=== PATIENT | female | born 2005 | race Caucasian/White ===

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

== ENCOUNTER 2025-07-07 18:16 | Emergency (ER) | payer OTHER, MEDICAID, SELFPAY ==
--- NOTE | 2025-07-07 18:18 | ED_ITS ---
HPI - Wound/Laceration General Chief Complaint: Skin/Abscess/Foreign Body Stated Complaint: Left thumb lac Time Seen by Provider: 07/07/25 18:18 Source: patient Mode of arrival: ambulatory Limitations: no limitations History of Present Illness HPI narrative: Alexander is a 19-year-old female patient presenting to the clinic today with complaints of a left thumb laceration around 530 this evening. She reports she was throwing away a can and cut her thumb on the side of the can. Bleeding is controlled. Tetanus is greater than 5 years. Related Data Home Medications ?Medication ?Instructions ?Recorded ?Confirmed ?Last Taken ?Type sertraline 50 mg tablet mg 04/12/24 Unknown History Allergies Allergy/AdvReac Type Severity Reaction Status Date / Time No Known Allergies Allergy Mild Verified 07/07/25 18:28 Review of Systems Review of Systems: Pertinent positives per HPI. Patient denies any fever, chills, rash, headache, visual changes, dizziness, cough, runny nose, sore throat, shortness of breath, chest pain, palpitations, nausea, vomiting, diarrhea, constipation, abdominal pain, or any urinary issues. PMFSH Past Medical History Medical History Acid reflux Anxiety and depression Surgical History Surgical History History of tonsillectomy and adenoidectomy Social History Social History Smoking status: Never smoker Alcohol intake: never Substance use type: does not use Living arrangements: with family Gender identity (if verbalized by the patient): Female Comments At the time of my signature, I reviewed and agree with the nursing past medical, surgical, social, and family history. There is no relevant family history pertinent to the patient complaint. Exam Narrative: General: Well-developed, well nourished, in no apparent distress Head: Normocephalic, atraumatic. Cardio: Regular rate and rhythm, s1 and s2 normal, no murmur appreciated. Resp: Clear to auscultation bilaterally, no rhonchi, rales, wheezing or rubs. Integumentary: Villalba, warm, and dry, 1.5 cm horizontal laceration to the distal volar aspect of the left thumb without nail involvement Course Course Emergency Course: Portions of this record may have been created with voice recognition software. Level of Care: Express Care Visit Vital Signs Vital signs: Vital Signs Temperature 36.4 C 07/07/25 18:24 Pulse Rate 72 07/07/25 18:24 Respiratory Rate 20 07/07/25 18:24 Blood Pressure 135/51 L 07/07/25 18:24 Pulse Oximetry 100 07/07/25 18:24 Oxygen Delivery Room Air 07/07/25 18:24 Temperature 36.4 C 07/07/25 18:24 Pulse Rate 72 07/07/25 18:24 Respiratory Rate 20 07/07/25 18:24 Blood Pressure 135/51 L 07/07/25 18:24 Pulse Oximetry 100 07/07/25 18:24 Oxygen Delivery Room Air 07/07/25 18:24 Vital signs reviewed Procedures Laceration Laceration 1: Date: 07/07/25 Site: hand (thumb) Side (If applicable): left Size (cm): 1.5 Description: linear Depth: simple, single layer Local Anesthetic: lidocaine 1% Amount of anesthesia used (mL): 2 Pre-repair: wound explored and irrigated ====== Skin Level ====== Skin layer closed with: nylon Size (cm): 5-0 Number of sutures: 4 Technique: simple, interrupted ====== Subcutaneous Layer ====== ====== Muscle Layer ====== ====== Tendon Layer ====== Dressing: Verbal consent obtained for laceration repair. Risk and benefits explained and patient voiced understanding. Area was cleansed with antiseptic wound wash and a 27 gauge needle was then used to instill (2) ml of 1% lidocaine without epi into the wound edges. Area was prepped and draped using sterile technique. A 5-0 suture on a p needle was used to place (4) interrupted sutures bringing the wound edges together- well approximated. Patient tolerated procedure well. Sterile dressing applied. MDM - Wound/Laceration MDM Narrative Medical decision making narrative: At the time of visit patient is resting comfortably on the exam table. Patient appears to be nontoxic. Complaints of a left thumb laceration around 530 this evening. She reports she was throwing away a can and cut her thumb on the side of the can. Bleeding is controlled. Tetanus is greater than 5 years. On exam 1.5 cm horizontal laceration to the distal volar aspect of the left thumb without nail involvement. Laceration repair recommended. Tetanus shot ordered. Medications: Tdap 0.5 mL IM given in the clinic today Procedure: Laceration repair was performed in the clinic today. Four 5-0 interrupted sutures were placed bringing the wound edges well approximate. Bleeding controlled. Patient tolerated well. Plan: Patient has a 1.5 cm laceration-wound repaired in the clinic today. Patient tolerated well. Sutures out in 7 days. Tetanus was updated in the clinic today. Supportive measures were discussed with the patient and they voiced understanding discharge instructions and agrees to treatment plan. Return precautions reviewed Differential Diagnosis Differential diagnosis: Likely laceration, abscess, abrasion and avulsion of skin Discharge Plan Discharge Clinical Impression: Laceration of thumb Qualifiers: Encounter type: initial encounter Damage to nail status: without damage Foreign body presence: without foreign body Laterality: left Qualified Code(s): S61.012A - Laceration without foreign body of left thumb without damage to nail, initial encounter Patient Disposition: Home Condition: Stable Instructions: Antibiotic Form, Finger Laceration (ED) Additional Instructions: Tdap was updated in the clinic today Leave bandage on for 24 hours then may remove and apply band aide covering as needed. Keep wound clean and dry Skin sutures out in 7 days. Do not submerge hand in dirty water Watch for signs and symptoms of infection- redness, streaking, swelling, purulent discharge, or increase in pain. Follow up with your PCP for suture removal or return to the Express care. Patient Language: Sri Lankan Prescriptions: No Action sertraline 50 mg tablet amoxicillin 875 mg tablet 875 mg PO Q12H Qty: 20 0RF Follow-up/Referrals: UNKNOWN,DOCTOR [Non-Staff] Stand Alone Forms: Work/School Release IP Time of Disposition: 18:37 Quality NIHSS Nursing Documentation ED NIHSS nursing documentation: reviewed/agree
--- OUTSIDE RECORDS SUMMARY | 2025-07-07 18:18 | XMS_ITS | Clinical Summary ---
Author Organization [facility] Address [address] [place] [address] Phone Care Team Providers Care [employer] Name Role Phone [facility], External Provider Primary Care Provider U navailable Allergies No known active allergies Medications bupropion HCl (WELLBUTRIN ORAL) Take by mouth daily. Active fluoxetine HCl (PROZAC ORAL) Take by mouth daily. Active Family History Medical History Relation Name Comments Anxiety Paternal Grandmother Depression Paternal Grandmother Relation Name Status Comments Brother Alive Father Alive Mother Alive Paternal Grandmother Alive Sister Alive Social History Tobacco Use Types Packs/Day Years Used Date Smoking Tobacco: Never Smokeless Tobacco: Never Alcohol Use Standard Drinks/Week Comments Not Currently 0 (1 standard drink = 0.6 oz pur e alcohol) Feeling Safe Answer Date Recorded Within the last year, have y ou been afraid of your partner or ex-partner? No 01/16/2022 Within the last year, have y ou been humiliated or emotionally abused in other ways by your partner or ex-partner? No Within the last year, have y ou been kicked, hit, slapped, or otherwise physically hurt by your partner or ex-partner? No 01/16/2022 Within the last year, have y ou been raped or forced to have any kind of sexual activity by your partner or ex-partner? No 01/16/2022 Financial Resource Strain Answer Date R ecorded How hard is it for you to pa y for the very basics like food, housing, medical care, and heating? Not hard at all 01/16/2022 Food Insecurity Answer Date Recorded In the past 12 months, have you worried that your food would run out before you had money to buy more? Never true 2021 Ran Out of Food in the Last Year Not on file 01/16/2022 Transportation Needs Answer Date Record ed In the past 12 months, has l ack of transportation kept you from medical appointments or from getting medications? No 12/29 In the past 12 months, has l ack of transportation kept you from meetings, work, or from getting things needed for daily living? No 01/16/2022 Housing Stability Answer Date Recorded In the last 12 months, was t here a time when you were not able to pay the mortgage or rent on time? No 01/16/2022 Number of Times Moved in the Last Year Not on fi le 01/16/2022 At any time in the past 12 m [facility], were you homeless or living in a senior living (including now)? No 01/16/2022 Caregiver Education and Work Answer Scott e Recorded Do you have a high school degree? No 01/16/2022 Do you ever need help reading hospital materials ? No 01/16/2022 Safety and Environment Answer Date Cal rded Do you worry that your child may have been physically abused? No 01/16/2022 Do you worry that your child may have been sexua lly abused? No 01/16/2022 Are there any guns kept in o r around your home or where your child spends time? No 01/16/2022 Guns Unloaded or Locked Away Not on file Caregiver Health Answer Date Recorded Over the past two weeks, how often have you felt little interest or pleasure in doing things? Not at all 01/16/2022 Over the past two weeks have you been bothered by feeling down, depressed, or hopeless? Several days 01/16/2022 Does anyone in your home hav e a problem with alcohol, marijuana, other substances? No 01/16/2022 Adolescent Substance Use Answer Date Re corded Do you have a problem with alcohol or marijuana? No 01/16/2022 Do you use medicine not pres cribed to you, or any other types of drugs (such as cocaine, heroin, or meth)? No 01/16/2022 Do you use tobacco or e-cigarettes? No 01/16/2022 Adolescent Education Answer Date Record ed Getting School Help Needed Not on file 06/08 Comments No Sex and Gender Information Value Date Recorded Sex Assigned at Not on file Legal Sex Female 4:56 PM CDT Gender Identity Not on file Sexual Orientation Not on file Last Filed Vital Signs Vital Sign Reading Time Taken Comments Blood Pressure 121/74 01/16/2022 7:34 PM CDT Pulse 98 01/16/2022 7:34 PM CDT Temperature 36.3 C (97.4 F) 01/16/2022 7:34 PM CDT Respiratory Rate 18 01/16/2022 7:34 PM CDT Oxygen Saturation 100% 01/16/2022 7:34 PM CDT Inhaled Oxygen Concentration - - Weight 123.7 kg (272 lb 11.3 oz) 01/16/2022 5:04 PM CDT Height - - Body Mass Index - - Plan of Treatment Health Maintenance Due Date Last Done Comments CHLAMYDIA SCREENING (ANNUAL) 11-24 YEARS 2016 HPV VACCINES (1 - 3-dose series) 2020 DTAP/TDAP/TD VACCINES (1 - Tdap) 2024 HEPATITIS B VACCINES (1 of 3 - 19+ 3-dose series) 06/30 INFLUENZA VACCINE (#1) 2025 Insurance [place] Care Teams [employer] Relationship Specialty Start Date End Date [facility], External Provider [address] [place] [id number] PCP - General 01/16/22
--- OUTSIDE RECORDS SUMMARY | 2025-07-07 18:18 | XMS_ITS ---
Author Organization [facility] Address [address] [place] [address] Care Team Providers Care Seeing Eye Dog Teacher Name Role Phone Jose Polanco MD [facility] Status:Enrolled (Active) Start date:11/27/2024 Enrollment date:11/27/2024 Related social drivers of health:Intimate Partner Violence, Social Connections, Alcohol Use, Tobacco Use, Financial Resource Strain,Depression, Stress, Physical Activity, Food Insecurity, Transportation Needs, Housing Stability, Utilities Continued Care and Services Coordination
[2025-07-07 18:24] VITALS: BP 135/51; PULSE 72; RESP 20; TEMP 36.4; O2SAT 100
[2025-07-07] MEDS: TETANUS,DIPHTHERIA,AC PERTUSSIS ADULT (0.5 ML) BOOSTRIX IM (18:37)
[2025-07-07] MEDS: LIDOCAINE 1% LOCAL INJ 2 ML AMPUL 4 ML INFILTRATE (18:37)
== END 2025-07-07 19:10 | disposition home or self-care (01) ==
LOC: EXPBETH 18:20
PROVIDERS: Emergency Provider Nurse Practitioner Family
DX: S61.012A Laceration without foreign body of left thumb without damage to nail, initial encounter (principal); W45.8XXA Other foreign body or object entering through skin, initial encounter; Z23 Encounter for immunization; K21.9 Gastro-esophageal reflux disease without esophagitis; F41.9 Anxiety disorder, unspecified; F32.A Depression, unspecified
CPT/HCPCS: 12001; 90471; 90715; 99212; G0463; J2003

== ENCOUNTER 2025-07-24 10:10 | Emergency (ER) | payer MEDICAID, SELFPAY ==
[2025-07-24 10:14] VITALS: BP 113/70; PULSE 93; RESP 20; TEMP 36.6; O2SAT 100
--- NOTE | 2025-07-24 10:25 | ED.URI ---
HPI - URI/Sore Throat General Chief Complaint: Upper Respiratory Infection Stated Complaint: cold symptoms Time Seen by Provider: 07/24/25 10:25 Source: patient, RN notes reviewed and old records reviewed Mode of arrival: ambulatory Limitations: no limitations History of Present Illness HPI Narrative: 20 year old female presents to [facility] care with complaints of one week duration of sore throat, cough, nasal drainage,headache,denies any known fevers.Patient reports that her throat has become intensively more painful. Paitient reports that she has been taking Ibuprofen and also some OTC sinus medication without improvement. MD elicited complaint: cough, sore throat, rhinorrhea and nasal congestion Onset (ago): week(s) (1) Pain scale (0-10): 10 Able to tolerate fluids by mouth: Yes Exacerbating factors: swallowing Treatments prior to arrival: other (sinus medication and Ibuprofen) Related Data Home Medications ?Medication ?Instructions ?Recorded ?Confirmed ?Last Taken ?Type sertraline 50 mg tablet mg 04/12/24 Unknown History Allergies Allergy/AdvReac Type Severity Reaction Status Date / Time No Known Allergies Allergy Mild Verified 07/24/25 10:12 Review of Systems Review of Systems: CONSTITUTIONAL: reports malaise,positive for chills, sweats, no known fever. EYES: Denies visual changes, redness, or discharge. ENT: Reports rhinorrhea, congestion, sinus pain,no otalgia and positive for sore throat. CARDIOVASCULAR: Denies chest pain, palpitations, or edema. RESPIRATORY: Reports cough.? Denies dyspnea. GASTROINTESTINAL: Denies abdominal pain, nausea, vomiting, diarrhea SKIN: Denies rash or itching. MUSCULOSKELETAL: Denies myalgia. NEUROLOGIC: Reports headache. All systems reviewed & are unremarkable except as noted in HPI and below PMFSH Past Medical History Medical History (Updated 07/25/25 @ 07:24 by Chantel Peters NP) Mood disorder Acid reflux Anxiety and depression Surgical History Surgical History History of tonsillectomy and adenoidectomy Social History Social History (Updated 07/25/25 @ 07:22 by Chantel Peters NP) Smoking status: Current every day smoker Tobacco type: e-cigarettes/vaping Alcohol intake: never Substance use type: does not use Living arrangements: with family Gender identity (if verbalized by the patient): Female Comments At time of signature, agree with nursing past medical, surgical, social and family history. There is no relevant family history pertinent to the presenting complaint Exam Narrative: GENERAL: Well-appearing, well-nourished, and in no acute distress. HEAD: Normocephalic EYES: PERRLA, conjunctivae clear ENT: Nares clear, turbinates edematous and erythematous, clear discharge, sinus pressure and headache. Mucous membranes moist. TM pearly coto with dull light reflex bilaterally; no tragal tenderness. Oropharynx erythematous without lesions. Tonsils not present and throat without exudate, no drooling, no hoarseness, no trismus, uvula midline, post nasal drainage.. NECK: Supple. No lymphadenopathy CHEST: Clear to auscultation, breath sounds equal. No wheezing, rhonchi, rales, or stridor. No respiratory distress, speaks in full sentences.dry cough SAO2 100% on room air HEART: Regular rate and rhythm. No murmur heard. SKIN: Warm, dry, no rash. NEURO: Alert and oriented x3. PSYCH: Normal mood and affect Course Course Emergency Course: Patient is aware of diagnosis, understands and agrees to treatment plan.? Anticipatory guidance given.? Patient agrees to follow-up as directed and is aware of reasons to seek care at the emergency department. Portions of this record may have been created with voice recognition software Level of Care: Express Care Visit Vital Signs Vital signs: Vital Signs Temperature 36.6 C 07/24/25 10:14 Pulse Rate 93 07/24/25 10:14 Respiratory Rate 07/24/25 10:14 Blood Pressure 113/70 07/24/25 10:14 Pulse Oximetry 100 07/24/25 10:14 Oxygen Delivery Room Air 07/24/25 10:14 Temperature 36.6 C 07/24/25 10:14 Pulse Rate 93 07/24/25 10:14 Respiratory Rate 07/24/25 10:14 Blood Pressure 113/70 07/24/25 10:14 Pulse Oximetry 100 07/24/25 10:14 Oxygen Delivery Room Air 07/24/25 10:14 Reviewed MDM - URI/Sore Throat MDM Narrative Medical decision making narrative: Differential diagnosis considered: Ramirez virus, strep pharyngitis, allergic rhinitis, upper respiratory tract infection, sinusitis, rhinosinusitis, nasopharyngitis. viral pharyngitis, otitis media, otitis externa, pneumonia, bronchitis, viral cough syndrome, viral syndrome, and influenza.? Exam findings show no acute concerns or changes; patient is non-toxic appearing and is in no distress.? Patient is appropriate for outpatient treatment and follow-up. Differential Diagnosis Differential diagnosis: Likely upper respiratory infection, viral infection, influenza, pharyngitis and other (strep pharyngitis, COVID) Medical Records Attestation: I reviewed the patient's medical records. Lab Data Attestation: I reviewed the patient's lab results. Lab results narrative: strep screen negative, strep culture sent, COVID antigen negative, Influenza A&B negative Labs: Lab Results 07/24/25 Range/Units 10:22 POC Influenza A Ag Negative (Negative) POC Influenza B Ag Negative (Negative) POC SARS CoV-2 Ag Negative (Negative) POC Grp A Strep Screen Negative (Negative) reviewed Critical Care Time Critical Care Time Critical Care Time: No Discharge Plan Discharge Clinical Impression: Upper respiratory infection Qualifiers: URI type: unspecified URI Qualified Code(s): J06.9 - Acute upper respiratory infection, unspecified Patient Disposition: Home Condition: Stable Instructions: Upper Respiratory Infection (ED) Additional Instructions: Increase fluids especially juices and water [id number]-[id number] cough and cold medicine of your choice for your symptoms Flonase nasal spray take as prescribed Claritin daily take as prescribed heat to the face 20-30 minutes 4-6 times a day for pain Salt water gargles, throat lozenges or throat sprays as desired If your symptoms persist, change or worsen significantly before you can contact your personal physician then please, without delay, go to the emergency department for further evaluation. Follow-up with PCP in 7-10 days or sooner if needed May take Tylenol or ibuprofen per package instructions for any fever pain Patient Language: Macedonian Prescriptions: New loratadine [Claritin] 10 mg tablet 10 mg PO DAILY Qty: 30 0RF fluticasone propionate [Flonase Allergy Relief] 50 mcg/actuation spray,suspension 1 spray intranasal DAILY Qty: 16 0RF Rx Instructions: administer into each nostril No Action sertraline 50 mg tablet Follow-up/Referrals: PHYSICIAN,LEASE PURCHASE TRUCK DRIVER [Primary Care Provider, Internal Medicine] Time of Disposition: 10:45 Quality Edith Coma Scale Eyes: Open Verbal: Oriented and Alert Motor: Follows Commands Edith Coma Total Score: 15
[2025-07-24 10:32] LABS: EDSTREPNEGPOS1 Negative (Negative)
[2025-07-24 10:53] LABS: EDCOVIDSCREEN Negative (Negative); EDINFLUASCREEN Negative (Negative); EDINFLUBSCREEN Negative (Negative)
--- OUTSIDE RECORDS SUMMARY | 2025-07-24 11:12 | XMS_ITS ---
Author Organization [facility] Address [address] [place] [address] Care Team Providers Care Oil Well Driller Name Role Phone Jose Polanco MD [facility] Status:Enrolled (Active) Start date:11/27/2024 Enrollment date:11/27/2024 Related social drivers of health:Intimate Partner Violence, Social Connections, Alcohol Use, Tobacco Use, Financial Resource Strain,Depression, Stress, Physical Activity, Food Insecurity, Transportation Needs, Housing Stability, Utilities Continued Care and Services Coordination
--- OUTSIDE RECORDS SUMMARY | 2025-07-24 11:12 | XMS_ITS | Clinical Summary ---
Author Organization [facility] Address [address] [place] [address] Phone Care Team Providers Care Transportation Engineering Technician Name Role Phone [facility], External Provider Primary Care Provider [...] any time in the past 12 m [facility], were you homeless or living in a prison (including now)? No 01/16/2022 Caregiver Education and [...] [place] Care Teams Transportation Engineering Technician Relationship Specialty Start Date End Date [facility], External Provider [address] [place] [address] PCP - General 01/16/22
--- OUTSIDE RECORDS SUMMARY | 2025-07-24 11:12 | XMS_ITS | Clinical Summary ---
Author Organization [facility] Address [address] [place] [address] Care Team Providers Care Housesmith Name Role Phone Jose Polanco MD Primary Care Provider + Social History Tobacco Use Types Packs/Day Years Used Date Smoking Tobacco: Never Assessed Comments Unknown Sex and Gender Information Value Date Recorded Sex Assigned at Female 12/27/2023 11:08 AM DROP FORGER HELPER Legal Sex Female 7:17 PM CDT Gender Identity Female 12/27/2023 11:08 AM DROP FORGER HELPER Sexual Orientation Not on file Plan of Treatment Health Maintenance Due Date Last Done Comments Hepatitis C Virus (HCV) Screening 2005 Hepatitis B Immunization (3 of 3 - 3-dose series) 01/11/2006 2005, 2005 Meningococcal B Immunization (1 of 2 - Standard) 2021 Influenza Immunization (#1) 06/30/202507/30, 09/14/2020, 08/21/2019, Additional history exists SARS-COV-2 Immunization ( season) 2025 Respiratory Syncytial Virus (RSV) Immunization (Adult) (1 - 1-dose 75+ series) 2080 Pneumococcal Immunization Combined Aged Out 10/16/2006, 02/10/2006, 2005 No longer eligible based on patient's age to complete this topic Hepatitis A Immunization Discontinued 06/13/2009, 12/28 Measles Mumps Rubella (MMR) Immunization Discontinued 07/21/2009, 08/24/2006 Polio (IPV) Immunization Discontinued 009, 02/10/2006, 2005, Additional history exists Varicella Immunization Discontinued 07/21/2009, 2005 DTaP/Tdap/Td Immunization Discontinued 2016, 07/21/2009, 10/16/2006, Additional history exists Meningococcal Immunization (ACWY) Aged Out 05/10/2017 No longer eligible based on patient's age to complete this topic TdaP Immunization Completed 05/10/2017 Human Papillomavirus (HPV) Immunization Completed 08/21/2019, 05/10/2017 Rotavirus Immunization Aged Out No lo nger eligible based on patient's age to complete this topic Insurance [place] Care Teams Housesmith Relationship Specialty Start Date End Date Jose Polanco MD [address] [place] [address] [address] PCP - General Family Medicine 12/04/23
== END 2025-07-24 10:54 | disposition home or self-care (01) ==
PROVIDERS: Emergency Provider Registered Nurse
DX: J06.9 Acute upper respiratory infection, unspecified (principal); F17.290 Nicotine dependence, other tobacco product, uncomplicated; Z20.822 Contact with and (suspected) exposure to COVID-19
CPT/HCPCS: 87081; 87426; 87804; 87880; 99213; G0463

== ENCOUNTER 2025-09-20 16:18 | Emergency (ER) | payer SELFPAY ==
--- OUTSIDE RECORDS SUMMARY | 2025-09-20 16:21 | XMS_ITS ---
Author Organization [facility] Address [address] [place] [address] Care Team Providers Care Store Protection Specialist Name Role Phone Jose Polanco MD Primary Care Provider + [facility] Status:Enrolled (Active) Start date:11/27/2024 Enrollment date:11/27/2024 Related social drivers of health:Intimate Partner Violence, Social Connections, Alcohol Use, Tobacco Use, Financial Resource Strain,Depression, Stress, Physical Activity, Food Insecurity, Transportation Needs, Housing Stability, Utilities Continued Care and Services Coordination
--- OUTSIDE RECORDS SUMMARY | 2025-09-20 16:21 | XMS_ITS | Clinical Summary ---
Author Organization [facility] Address [address] [place] [address] Phone Care Team Providers Care Cardio Clinician Name Role Phone [facility], [facility] Provider Primary Care Provider U navailable [...] any time in the past 12 m [facility], were you homeless or living in a detention (including now)? No 01/16/2022 Caregiver Education and [...] [place] Care Teams Cardio Clinician Relationship Specialty Start Date End Date [facility], External Provider [address] [place] [address] PCP - General 01/16/22
--- OUTSIDE RECORDS SUMMARY | 2025-09-20 16:23 | XMS_ITS | Clinical Summary ---
Author Organization [facility] Address [address] [place] [address] Care Team Providers Care Compression Molding Machine Setter Name Role Phone Jose Polanco MD Primary Care Provider + Social History Tobacco Use Types Packs/Day Years Used Date Smoking Tobacco: Never Assessed Comments Unknown Sex and Gender Information Value Date Recorded Sex Assigned at Female 12/27/2023 11:08 AM SAUSAGE GRINDER Legal Sex Female 7:17 PM CDT Gender Identity Female 12/27/2023 11:08 AM SAUSAGE GRINDER Sexual Orientation Not on file Plan of Treatment Health Maintenance Due Date Last Done Comments Hepatitis C Virus (HCV) Screening 2005 Hepatitis B Immunization (3 of 3 - 3-dose series) 01/11/2006 2005, 2005 Meningococcal B Immunization (1 of 2 - Standard) 2021 Influenza Immunization (#1) 06/30/202507/30, 09/14/2020, 08/21/2019, Additional history exists SARS-COV-2 Immunization (2024- season) 2025 Respiratory Syncytial Virus (RSV) Immunization (Adult) (1 - 1-dose 75+ series) 2080 Pneumococcal Immunization Combined Aged Out 10/16/2006, 02/10/2006, 2005 No longer eligible based on patient's age to complete this topic Hepatitis A Immunization Discontinued 06/13/2009, 12/28 Measles Mumps Rubella (MMR) Immunization Discontinued 07/21/2009, 08/24/2006 Polio (IPV) Immunization Discontinued 009, 02/10/2006, 2005, Additional history exists Varicella Immunization Completed 07/21/2009, 2005 DTaP/Tdap/Td Immunization Discontinued 2016, 07/21/2009, 10/16/2006, Additional history exists Meningococcal Immunization (ACWY) Aged Out 05/10/2017 No longer eligible based on patient's age to complete this topic TdaP Immunization Completed 05/10/2017 Human Papillomavirus (HPV) Immunization Completed 08/21/2019, 05/10/2017 Rotavirus Immunization Aged Out No lo nger eligible based on patient's age to complete this topic Insurance [place] Care Teams Compression Molding Machine Setter Relationship Specialty Start Date End Date Jose Polanco MD [address] [place] [address] [address] PCP - General Family Medicine 12/04/23
[2025-09-20 16:28] VITALS: BP 126/64; PULSE 88; RESP 16; TEMP 36.7; O2SAT 98
--- NOTE | 2025-09-20 16:34 | ED_ITS ---
HPI - URI/Sore Throat General Chief Complaint: Nausea/Vomiting/Diarrhea Stated Complaint: Shortness of Breath/Cough Time Seen by Provider: 09/20/25 16:39 Source: patient Mode of arrival: ambulatory Limitations: no limitations History of Present Illness HPI Narrative: 20 year old female presents to express care wit complaints of intermittent vomiting Monday, Monday, and Monday of this week with no emesis. She reports that she had vomiting again yesterday and today she vomited at work and was sent home. Patient reports that she has had productive cough and runny nose for a week with no known fevers, chills or body aches. Patient reports that she was tested for flu and COVID on Monday which was negative.Patient denies any abdominal pain or any diarrhea.reports no blood in emesis or any bilious vomiti. MD elicited complaint: cough, rhinorrhea, nasal congestion and other (vomiting) Onset (ago): week(s) (1) Severity: mild Description of mucous: clear Able to tolerate fluids by mouth: Yes Treatments prior to arrival: none Related Data Home Medications ?Medication ?Instructions ?Recorded ?Confirmed ?Last Taken ?Type sertraline 50 mg tablet mg 04/12/24 Unknown History nitrofurantoin 09/20/25 Unknown History monohydrate/macrocrystals 100 mg capsule Allergies Allergy/AdvReac Type Severity Reaction Status Date / Time No Known Allergies Allergy Mild Verified 09/20/25 16:28 Review of Systems Review of Systems: CONSTITUTIONAL: Denies fever, chills, or sweats. EYES: Denies visual changes, redness, or discharge. ENT: reports rhinorrhea, congestion,no sore throat, no otalgia. CARDIOVASCULAR: Denies chest pain, palpitations, or edema. RESPIRATORY: Reports productive cough denies dyspnea. GASTROINTESTINAL: Denies abdominal pain, +nausea,+ vomiting,no diarrhea. GENITOURINARY: Denies dysuria or hematuria. SKIN: Denies rash or itching. MUSCULOSKELETAL: Denies back pain, joint pain, or myalgia. NEUROLOGIC: Denies headache, numbness, or weakness. PSYCHIATRIC: Reports history of anxiety or depression. All systems reviewed & are unremarkable except as noted in HPI and below PMFSH Past Medical History Medical History Mood disorder Acid reflux Anxiety and depression Surgical History Surgical History History of tonsillectomy and adenoidectomy Social History Social History Smoking status: Current every day smoker Tobacco type: e-cigarettes/vaping Alcohol intake: never Substance use type: does not use Living arrangements: with family Gender identity (if verbalized by the patient): Female Comments At time of signature, agree with nursing past medical, surgical, social and family history. There is no relevant family history pertinent to the presenting complaint Exam Narrative: GENERAL: Well-appearing, well-nourished, and in no acute distress. HEAD: Normocephalic, atraumatic. EYES: PERRLA and EOMI. ENT: Nares clear, clear rhinorrhea no epistaxis. Mucous membranes moist.TM's normal with brisk light reflex, throat red, no swelling or exudates, tonsils absent NECK: Supple.no lymphadenopathy CHEST: Clear to auscultation. No respiratory distress.no tachypnea or any retractions, Denies any shortness of breath reports productive cough, SAO2 98% on room air HEART: Regular rate and rhythm. No murmur heard. Normal peripheral pulses. ABDOMEN: Soft, nontender, to palpation, no McBurney point tenderness or any suprapubic tenderness, nondistended,negative Escobedo sign normal active bowel sounds.reports intermittent emesis EXTREMITIES: Normal range of motion. No edema. SKIN: Warm, dry, no rash. NEURO: No focal deficits. Alert and oriented x3. Course Course Emergency Course: Patient is aware of diagnosis, understands and agrees to treatment plan.? Anticipatory guidance given.? Patient agrees to follow-up as directed and is aware of reasons to seek care at the emergency department. Portions of this record may have been created with voice recognition software Level of Care: Express Care Visit Vital Signs Vital signs: Vital Signs Temperature 36.7 C 09/20/25 16:28 Pulse Rate 88 09/20/25 16:28 Respiratory Rate 16 09/20/25 16:28 Blood Pressure 126/64 09/20/25 16:28 Pulse Oximetry 98 09/20/25 16:28 Oxygen Delivery Room Air 09/20/25 16:28 Temperature 36.7 C 09/20/25 16:28 Pulse Rate 88 09/20/25 16:28 Respiratory Rate 16 09/20/25 16:28 Blood Pressure 126/64 09/20/25 16:28 Pulse Oximetry 98 09/20/25 16:28 Oxygen Delivery Room Air 09/20/25 16:28 Reviewed MDM - URI/Sore Throat Differential Diagnosis Differential diagnosis: Likely upper respiratory infection, viral infection and other (vomiting, gastritis, gerd, strep) Medical Records Attestation: I reviewed the patient's medical records. Lab Data Attestation: I reviewed the patient's lab results. Lab results narrative: strep screen negative, culture sent, bedside negative Critical Care Time Critical Care Time Critical Care Time: No Discharge Plan Discharge Clinical Impression: Cough in adult patient Gastritis Qualifiers: Gastritis type: unspecified gastritis Chronicity: unspecified Gastritis bleeding: without bleeding Qualified Code(s): K29.70 - Gastritis, unspecified, without bleeding Patient Disposition: Home Condition: Stable Instructions: Antibiotic Form, Gastritis (ED), Acute Cough (ED) Additional Instructions: Increase fluids especially juices and water [id number] cough and cold medicine of your choice for your symptoms such as Robitussin or Delsym cough syrup Clear liquids for the next 8-10 hours, then advance to a bland diet as tolerated A bland diet can consist of--BRAT diet which is bananas, rice, applesauce, and toast Avoid fried, greasy, fatty, fried foods Avoid caffeine, nicotine, and alcohol Return to your regular diet in the next 3-4 days Medication as directed for nausea and vomiting Sometimes ibuprofen/Aleve can cause increased stomach upset [id number] Imodium if develop diarrhea Follow-up with her PCP if continued problems or uncontrolled pain If your symptoms persist, change or worsen significantly before you can contact your personal physician then please, without delay, go to the emergency department for further evaluation. Follow-up with PCP in 7-10 days or sooner if needed Follow up with PCP soon in regards to your blood pressure which is elevated above threshold for referral. Blood pressure above 120/80 may indicate pre- hypertension.126/64 stop vaping Patient Language: Macedonian Prescriptions: New ondansetron 4 mg tablet,disintegrating 4 mg PO Q6H PRN (Reason: nausea and vomiting) Qty: 20 0RF Rx Instructions: whatever is most economical No Action sertraline 50 mg tablet nitrofurantoin monohyd/m-cryst 100 mg capsule Follow-up/Referrals: UNKNOWN,DOCTOR [Primary Care Provider] Stand Alone Forms: Work/School Release IP Time of Disposition: 17:31 Quality Edith Coma Scale Eyes: Open Verbal: Oriented and Alert Motor: Follows Commands [place] Coma Total Score: 15
--- NOTE | 2025-09-20 17:24 | ED_ITS ---
HPI - General Adult General Chief complaint: Nausea/Vomiting/Diarrhea Stated complaint: Shortness of Breath/Cough Time Seen by Provider: 09/20/25 16:39 Source: patient Mode of arrival: ambulatory Limitations: no limitations Related Data Home Medications ?Medication ?Instructions ?Recorded ?Confirmed ?Last Taken ?Type sertraline 50 mg tablet mg 04/12/24 Unknown History nitrofurantoin 09/20/25 Unknown History monohydrate/macrocrystals 100 mg capsule Allergies Allergy/AdvReac Type Severity Reaction Status Date / Time No Known Allergies Allergy Mild Verified 09/20/25 16:28 [facility] Past Medical History Medical History (Updated 09/20/25 @ 17:30 by Chantel Peters APRN) Mood disorder Acid reflux Anxiety and depression Surgical History Surgical History History of tonsillectomy and adenoidectomy Social History Social History (Updated 07/25/25 @ 07:22 by Chantel Peters APRN) Smoking status: Current every day smoker Tobacco type: e-cigarettes/vaping Alcohol intake: never Substance use type: does not use Living arrangements: with family Gender identity (if verbalized by the patient): Female Course Course Level of Care: Express Care Visit Vital Signs Vital signs: Vital Signs Temperature 36.7 C 09/20/25 16:28 Pulse Rate 88 09/20/25 16:28 Respiratory Rate 16 09/20/25 16:28 Blood Pressure 126/64 09/20/25 16:28 Pulse Oximetry 98 09/20/25 16:28 Oxygen Delivery Room Air 09/20/25 16:28 Temperature 36.7 C 09/20/25 16:28 Pulse Rate 88 09/20/25 16:28 Respiratory Rate 16 09/20/25 16:28 Blood Pressure 126/64 09/20/25 16:28 Pulse Oximetry 98 09/20/25 16:28 Oxygen Delivery Room Air 09/20/25 16:28 Medical Decision Making Vital Signs Vital Signs: Vital Signs Temperature 36.7 C 09/20/25 16:28 Pulse Rate 88 09/20/25 16:28 Respiratory Rate 16 09/20/25 16:28 Blood Pressure 126/64 09/20/25 16:28 Pulse Oximetry 98 09/20/25 16:28 Oxygen Delivery Room Air 09/20/25 16:28 Temperature 36.7 C 09/20/25 16:28 Pulse Rate 88 09/20/25 16:28 Respiratory Rate 16 09/20/25 16:28 Blood Pressure 126/64 09/20/25 16:28 Pulse Oximetry 98 09/20/25 16:28 Oxygen Delivery Room Air 09/20/25 16:28 Critical Care Time Critical Care Time Critical Care Time: No Discharge Plan Discharge Clinical Impression: Cough in adult patient Gastritis Qualifiers: Gastritis type: unspecified gastritis Chronicity: unspecified Gastritis bleeding: without bleeding Qualified Code(s): K29.70 - Gastritis, unspecified, without bleeding Patient Disposition: Home Condition: Stable Instructions: Antibiotic Form, Gastritis (ED), Acute Cough (ED) Additional Instructions: Increase fluids especially juices and water [id number] cough and cold medicine of your choice for your symptoms such as Robitussin or Delsym cough syrup Clear liquids for the next 8-10 hours, then advance to a bland diet as tolerated A bland diet can consist of--BRAT diet which is bananas, rice, applesauce, and toast Avoid fried, greasy, fatty, fried foods Avoid caffeine, nicotine, and alcohol Return to your regular diet in the next 3-4 days Medication as directed for nausea and vomiting Sometimes ibuprofen/Aleve can cause increased stomach upset Mmzx-[id number]-[id number] Imodium if develop diarrhea Follow-up with her PCP if continued problems or uncontrolled pain If your symptoms persist, change or worsen significantly before you can contact your personal physician then please, without delay, go to the emergency department for further evaluation. Follow-up with PCP in 7-10 days or sooner if needed Follow up with PCP soon in regards to your blood pressure which is elevated above threshold for referral. Blood pressure above 120/80 may indicate pre- hypertension.126/64 stop vaping Patient Language: Pashto Prescriptions: New ondansetron 4 mg tablet,disintegrating 4 mg PO Q6H PRN (Reason: nausea and vomiting) Qty: 20 0RF Rx Instructions: whatever is most economical No Action sertraline 50 mg tablet nitrofurantoin monohyd/m-cryst 100 mg capsule Follow-up/Referrals: UNKNOWN,DOCTOR [Primary Care Provider] Stand Alone Forms: Work/School Release IP Time of Disposition: 17:31
[2025-09-22 11:49] LABS: BEDSIDEPREGUCG Negative (Negative)
[2025-09-22 11:49] LABS: EDSTREPNEGPOS1 Negative (Negative)
== END 2025-09-20 17:40 | disposition home or self-care (01) ==
PROVIDERS: Emergency Provider Registered Nurse
DX: R05.9 Cough, unspecified (principal); K29.70 Gastritis, unspecified, without bleeding; F17.290 Nicotine dependence, other tobacco product, uncomplicated; K21.9 Gastro-esophageal reflux disease without esophagitis; F41.9 Anxiety disorder, unspecified; F32.A Depression, unspecified
CPT/HCPCS: 81025; 87081; 87880; 99213; G0463